=== PATIENT | female | born 1950 | race Caucasian/White ===

== ENCOUNTER 2017-03-14 22:51 | Emergency (ER) | payer MEDICARE, BC ==
[~2017-03-14] VITALS: Ht 167.6 cm; Wt 59.1 kg
[~2017-03-14 22:51] MED LIST: BENADRYL50 MG PO; EPI EZ PEN1 MG/ML IM; EPIPEN 2-PAK1 MG/ML IM; FISH OIL500 MG PO; MAGCITRATE; NKA; PREDNISONE20 MG PO; PROBIOTICA100 Milli1 PO; ZANTAC 150MG T150 MG PO
[2017-03-14 22:56] VITALS: BP 135/70; PULSE 63; TEMP 98.1
== END 2017-03-14 23:23 | disposition home or self-care (01) ==
LOC: COL.ER 22:51
DX: S61.215A Laceration without foreign body of left ring finger without damage to nail, initial encounter (principal); J45.909 Unspecified asthma, uncomplicated; W26.8XXA Contact with other sharp object(s), not elsewhere classified, initial encounter; Y92.009 Unspecified place in unspecified non-institutional (private) residence as the place of occurrence of the external cause

== ENCOUNTER → 2019-03-20 | Outpatient (CLI) | payer MEDICARE, BC | LOC: MC.RAD 14:13 | DX: Z12.31 Encounter for screening mammogram for malignant neoplasm of breast (principal) ==

== ENCOUNTER → 2019-08-16 | Outpatient (CLI) | payer MEDICARE, BC | LOC: BHSO 10:51 | DX: F43.20 Adjustment disorder, unspecified (principal) ==

== ENCOUNTER → 2019-08-23 | Outpatient (CLI) | payer MEDICARE, BC | LOC: BHSO 16:03 | DX: F43.20 Adjustment disorder, unspecified (principal) ==

== ENCOUNTER → 2019-09-10 | Outpatient (CLI) | payer MEDICARE, BC | LOC: BHSO 14:59 | DX: F43.20 Adjustment disorder, unspecified (principal) ==

== ENCOUNTER → 2019-09-23 | Outpatient (CLI) | payer MEDICARE, BC | LOC: BHSO 15:00 | DX: F43.20 Adjustment disorder, unspecified (principal) ==

== ENCOUNTER → 2019-10-15 | Outpatient (CLI) | payer MEDICARE, BC | LOC: BHSO 15:10 | DX: F43.20 Adjustment disorder, unspecified (principal) ==

== ENCOUNTER → 2019-11-18 | Outpatient (CLI) | payer MEDICARE, BC | LOC: BHSO 10:55 | DX: F43.20 Adjustment disorder, unspecified (principal) ==

== ENCOUNTER → 2019-12-11 | Outpatient (CLI) | payer MEDICARE, BC | LOC: BHSO 11:18 | DX: F43.20 Adjustment disorder, unspecified (principal) ==

== ENCOUNTER → 2020-01-08 | Outpatient (CLI) | payer MEDICARE, BC | LOC: BHSO 11:03 | DX: F43.20 Adjustment disorder, unspecified (principal) ==

== ENCOUNTER → 2020-02-05 | Outpatient (CLI) | payer MEDICARE, BC | LOC: BHSO 11:10 | DX: F43.10 Post-traumatic stress disorder, unspecified (principal) ==

== ENCOUNTER → 2021-12-24 | Outpatient (CLI) | payer MEDICARE, BC | LOC: COL.RAD 09:30 | DX: K44.9 Diaphragmatic hernia without obstruction or gangrene (principal) ==